=== PATIENT | male | born 1975 | race Caucasian/White ===

== ENCOUNTER 2020-01-17 15:01 | Emergency (ER) | payer OTHER ==
[~2020-01-17] VITALS: Ht 182.9 cm; Wt 106.6 kg
[2020-01-17 15:26] LABS: BASOPHILS ABSOLUTE AUTO 0.05 K/mm3 (0.00-0.23); BASOPHILS PERCENT AUTO 1 % (0-2); EOSINOPHILS ABSOLUTE AUTO 0.13 K/mm3 (0.00-0.68); EOSINOPHILS PERCENT AUTO 2 % (0-6); Hematocrit 47.1 % (37.0-53.0); Hemoglobin 15.9 g/dL (13.5-17.5); IMMATURE GRAN ABSOLUTE AUTO 0.04 K/mm3 (0.00-0.10); IMMATURE GRAN PERCENT AUTO 1 % (0-1); LYMPHOCYTES ABSOLUTE AUTO 2.09 K/mm3 (0.84-5.20); LYMPHOCYTES PERCENT AUTO 27 % (21-46); MONOCYTES ABSOLUTE AUTO 0.61 K/mm3 (0.16-1.47); MONOCYTES PERCENT AUTO 8 % (4-13); Mean Corpuscular HGB 31.2 pg (26.0-34.0); Mean Corpuscular HGB Conc 33.8 g/dL (31.5-36.5); Mean Corpuscular Volume 92 fL (80-100); Mean Platelet Volume 10.5 fL (9.1-12.4); NEUTROPHILS ABSOLUTE AUTO 4.75 K/mm3 (1.96-9.15); NEUTROPHILS PERCENT AUTO 62 % (41-73); Platelet Count 253 K/mm3 (150-400); RDW Coefficient Variation 12.2 % (11.7-14.2); RDW Standard Deviation 41.9 fL (35.1-46.3); White Blood Cell Count 7.67 K/mm3 (4.00-11.30)
[2020-01-17 15:46] LABS: Alanine Aminotransfer (ALT/SGP 37 U/L (12-78); Albumin, Blood 3.9 g/dL (3.4-5.0); Albumin/Globulin Ratio 1.1 (0.8-1.8); Alk Phos 76 U/L (50-136); Anion Gap 7 mmol/L (6-16); Aspartate Aminotrans (AST/SGOT 25 U/L (12-37); Bilirubin, Total 0.2 mg/dL (0.1-1.0); Blood Urea Nitrogen 14 mg/dL (8-24); Bun/Creatinine Ratio 12.6 (12.0-20.0); CO2, Blood 23 mmol/L (21-32); Calcium, Blood 8.9 mg/dL (8.5-10.1); Chloride, Blood 108 mmol/L (98-108); Creatinine, Blood 1.11 mg/dL (0.60-1.20); Globulin, Blood 3.6 g/dL (2.2-4.0); Glomerular Filtration Rate >60 (60-); Glucose, Blood 104 mg/dL (70-99); Potassium, Blood 4.5 mmol/L (3.5-5.5); Sodium, Blood 138 mmol/L (136-145); Total Protein, Blood 7.5 g/dL (6.4-8.2)
[2020-01-17] MEDS ORDERED: ALBU90OI INH (16:24)
[2020-01-17] MEDS ORDERED: BENZ100A PO (16:24)
== END 2020-01-17 17:30 | disposition home or self-care (01) ==
LOC: ER 15:01
PROVIDERS: Nurse Practitioner
DX: J45.909 Unspecified asthma, uncomplicated (principal); I10 Essential (primary) hypertension; F17.200 Nicotine dependence, unspecified, uncomplicated
CPT/HCPCS: 71045; 80053; 85025; 94640; 99284-25

== ENCOUNTER → 2024-12-08 | Outpatient (CLI) | payer OTHER ==
[~2024-12-08] MED LIST: ALBU90OI INH; BENZ100A PO; Ibuprofen600 MG PO; LIDO700A20 TOP
== END ==
LOC: LAB 12:45 → LAB SHORT 12:45
DX: B35.3 Tinea pedis (principal)
CPT/HCPCS: 87070; 87205

== ENCOUNTER → 2025-02-08 | Outpatient (CLI) | payer OTHER | LOC: LAB SHORT 10:53 → LAB 10:53 | DX: L08.9 Local infection of the skin and subcutaneous tissue, unspecified (principal); S91.301A Unspecified open wound, right foot, initial encounter; M01.X71 Direct infection of right ankle and foot in infectious and parasitic diseases classified elsewhere | CPT/HCPCS: 88305 ==

== ENCOUNTER → 2025-02-08 | Outpatient (CLI) | payer OTHER | END | disposition home or self-care (01) | LOC: LAB SHORT 09:25 → LAB 09:25 | DX: L08.9 Local infection of the skin and subcutaneous tissue, unspecified (principal); M01.X71 Direct infection of right ankle and foot in infectious and parasitic diseases classified elsewhere | CPT/HCPCS: 87071; 87075; 87205 ==

== ENCOUNTER 2025-07-13 05:59 | Day surgery (SDC) | payer OTHER ==
[2025-07-13] VITALS (9 sets, daily range): BP systolic 128–148; BP diastolic 70–88
[~2025-07-13] VITALS: Ht 188 cm; Wt 99.9 kg
[~2025-07-13 05:59] MED LIST changes: +Flomax0.4 MG PO; +GABA100 PO; +HYDCOR2.5C PR; +MICONAZOLE NITR85 GM TOP
[2025-07-13] MEDS ORDERED: Ampicillin Sod/Sulbactam Sod 3 GM in NS 100 ML IV SCH (06:15)
--- NOTE | 2025-07-13 06:45 | NUR ---
Ambulatory in Day Surgery History, Chart, Medications and Allergies reviewed before start of procedure. Pre-Op teaching done. Pt verbalizes understanding. Patient States Post-Procedure ride home has been arranged.
[2025-07-13] MEDS ORDERED: Botulinum Toxin Type A 100 U Vial IM STA (07:11)
[2025-07-13] MEDS ORDERED: FentaNYL Citrate 50 MCG/ML 2 ML Injection ONE (07:22)
[2025-07-13] MEDS ORDERED: Midazolam HCl 1MG / ML 2ML Vial ONE (07:25)
[2025-07-13] MEDS ORDERED: Ondansetron HCl 2 MG / ML 2ML Vial ONE (07:34)
[2025-07-13] MEDS ORDERED: Dexamethasone Sod Phos 10 MG/ML 1ML VIAL ONE (07:34)
[2025-07-13] MEDS ORDERED: Ketorolac Tromethamine 30mg Vial ONE (07:34)
[2025-07-13] MEDS ORDERED: Morphine Sulfate 4 MG/1 ML Injection IV PRN (07:40)
[2025-07-13] MEDS ORDERED: Ondansetron HCl 2 MG / ML 2ML Vial IV PRN (07:40)
[2025-07-13] MEDS ORDERED: Rocuronium Bromide 10 MG/ML 5ML Injection IV ONE (07:44)
[2025-07-13] MEDS ORDERED: Sugammadex Sodium 200 MG/2ML SDV (100 MG/ML) ONE (07:44)
[2025-07-13] MEDS ORDERED: FentaNYL Citrate 50 MCG/ML 2 ML Injection IV PRN ×2 (07:45)
[2025-07-13] MEDS ORDERED: Lidocaine 1%-Epineph 1:200000 30 ML SDV ONE (07:45)
[2025-07-13] MEDS ORDERED: Albuterol 2.5 MG/3 ML VIAL INH PRN (07:45)
[2025-07-13] MEDS ORDERED: Metoclopramide HCl 5MG / ML 2ML Vial IV PRN (07:45)
[2025-07-13] MEDS ORDERED: HYDROmorphone HCl/Pf 1MG SYR IV PRN (07:45)
--- NOTE | 2025-07-13 08:07 | NUR ---
07/13/25 0807 Namita Adames BOTOX PROVIDED BY PHARMACY MIXED WITH 10ML OF 0.9% NS. 100 UNITS INJECTED INTO OPERATIVE SITE BY .
[2025-07-13] MEDS ORDERED: OxyCODONE 5 mg/Acetamin 325 mg TABLET PO PRN (08:30)
--- NOTE | 2025-07-13 08:52 | NUR ---
Report received from MADIE Iverson. VSS. Pt on RA. Pt A&OX4. Pt able to reposition self in bed. Pt requesting PO food and fluids and tolerating them well. Pt reports 4/10 discomfort to buttocks, but reports this is tolerable. Pt denies nausea or other discomforts. Pt has Xeroform & packing gauze to buttocks, as well as mesh underwear in place that is CDI.
--- NOTE | 2025-07-13 09:35 | NUR ---
Patient up to Ambulate independently. Gait steady. VSS and consistent with pt baseline. Pt medicated for pain with good relief, pt reports pain is tolerable. Pt verbalizes readiness to go home. Discharge instructions reviewed with patient. Patient verbalizes understanding. Copy given to patient to take home. Dressing to procedure site clean, dry, intact with no visible drainage, swelling, erythema or bruising noted. Patient States Post-Procedure ride home has been arranged. Discharged via wheelchair to private car for ride home. Pt belongings returned to pt.
== END 2025-07-13 09:35 | disposition home or self-care (01) ==
LOC: ORSCMMR 05:59 → ORD 07:30 → ORSCMMR 07:30
PROVIDERS: Surgery
PROC: 06BY0ZC Excision of Hemorrhoidal Plexus, Open Approach (ICD-10-PCS; principal; 2025-07-13 07:30)
PROC: 0DBQ0ZX Excision of Anus, Open Approach, Diagnostic (ICD-10-PCS; principal; 2025-07-13 07:30)
PROC: 3E0H3GC Introduction of Other Therapeutic Substance into Lower GI, Percutaneous Approach (ICD-10-PCS; principal; 2025-07-13 07:30)
DX: K64.2 Third degree hemorrhoids (principal); K62.82 Dysplasia of anus; A63.0 Anogenital (venereal) warts; N40.0 Benign prostatic hyperplasia without lower urinary tract symptoms; F17.210 Nicotine dependence, cigarettes, uncomplicated; Z79.899 Other long term (current) drug therapy
CPT/HCPCS: 88304; 88305; A9270; J0295; J0585; J1100; J1885; J2250; J2405; J2704; J3010; J7120